=== PATIENT | male | born 1965 | race Caucasian/White ===

== ENCOUNTER 2018-05-30 22:22 | Emergency (ER) | payer BC, OTHER ==
[2018-05-30 23:12] VITALS: RESP 18
[2018-05-31] MEDS ORDERED: SODIUM CHLORIDE 0.9% 1,000 ML IV STA (00:52)
[2018-05-31 01:15] LABS: Basophils % (A) 1 %; Eosinophils % (A) 1 %; HCT 48.5 % (39.0-53.0); HGB 15.8 gm/dL (13.0-17.5); Lymphocytes # (A) 1.1 k/uL (1.0-4.8); Lymphocytes % (A) 13 %; MCH 30.5 pg (25.0-35.0); MCHC 32.6 g/dL (31.0-37.0); MCV 93.6 fL (80.0-100.0); Mean Platelet Volume 8.7; Monocytes # (A) 0.8 k/uL (0-1.0); Monocytes % (A) 10 %; Neutrophils % (A) 75 %; Platelet Count 142 k/uL (150-450); RBC 5.19 m/uL (4.30-5.90); RDW 12.9 % (11.5-15.5); WBC 8.1 k/uL (3.8-10.6)
[2018-05-31 01:19] LABS: Partial Thromboplastin Time 25.8 sec (22.0-30.0); Prothrombin Time 10.3 sec (9.0-12.0)
[2018-05-31 01:28] LABS: ALT 22 U/L (21-72); AST 24 U/L (17-59); Albumin 3.8 g/dL (3.5-5.0); Alkaline Phosphatase 89 U/L (38-126); Anion Gap 10 mmol/L; Blood Urea Nitrogen 16 mg/dL (9-20); Carbon Dioxide 23 mmol/L (22-30); Chloride 102 mmol/L (98-107); Glucose 97 mg/dL (74-99); Potassium 4.2 mmol/L (3.5-5.1); Sodium 135 mmol/L (137-145); Total Bilirubin 0.6 mg/dL (0.2-1.3); Total Protein 6.7 g/dL (6.3-8.2)
--- NOTE | 2018-05-31 02:12 | XR ---
EXAM: XR Chest, 2 Views CLINICAL HISTORY: ITS.REASON XR Reason: syncope TECHNIQUE: Frontal and lateral views of the chest. COMPARISON: No relevant prior studies available. FINDINGS: Lungs: Patchy left lower lobe opacity. Pleural space: No effusion. Heart: No cardiomegaly. Mediastinum: Unremarkable. Bones/joints: No acute findings. IMPRESSION: Patchy opacity in the left lower lobe may represent infection, aspiration, or atelectasis.
[2018-05-31 02:19] VITALS: BP 102/69
--- NOTE | 2018-05-31 03:06 | ED ---
General Adult HPI - General Chief complaint: Syncope Stated complaint: Syncope Time Seen by Provider: 05/31/18 00:05 Source: patient Mode of arrival: ambulatory Limitations: no limitations - History of Present Illness Initial comments: It is a 52-year-old woman presents to emergency department for evaluation of generalized fatigue, exhaustion and a near syncopal episode at home. Patient reports that throughout the day today he was feeling fatigued had muscle aches but he was able to work outside all day. He reports he came in the house and afternoon and took off his boots he then began to feel lightheaded and lowered himself to the ground. He felt very weak and had muscle aches felt like he may have a fever which prompted his family bring the ER for evaluation. Patient reports a mild nonproductive cough, chills and fatigue. He denies any chest pain, palpitations, nausea, vomiting or change in bowel or bladder habits. - Related Data Home Medications Medication Instructions Recorded Confirmed Lisinopril [Zestril] 5 mg PO DAILY 08/08/14 12/28/14 metFORMIN HCL [Glucophage] 500 mg PO DAILY 08/08/14 12/28/14 Previous Rx's Medication Instructions Recorded Ibuprofen [Motrin] 600 mg PO Q6HR PRN #20 tab 12/28/14 Orphenadrine [Norflex] 100 mg PO Q12H #10 tablet.er 12/28/14 Allergies Allergy/AdvReac Type Severity Reaction Status Date / Time No Known Allergies Allergy Verified 12/28/14 22:34 Review of Systems ROS Statement: Those systems with pertinent positive or pertinent negative responses have been documented in the HPI. ROS Other: All systems not noted in ROS Statement are negative. Past Medical History Past Medical History: Diabetes Mellitus, Hypertension Additional Past Medical History / Comment(s): bilateral hearing aide History of Any Multi-Drug Resistant Organisms: None Reported Additional Past Surgical History / Comment(s): neck Past Psychological History: No Psychological Hx Reported Smoking Status: Current every day smoker Past Alcohol Use History: None Reported Past Drug Use History: None Reported General Exam - General Exam Comments Initial Comments: Physical Exam GENERAL: Patient is well-developed and well-nourished. Nontoxic but appears as though he is not feeling well, febrile HENT: Normocephalic, Atraumatic. Bilateral hearing names EYES: PERRL, EOMI PULMONARY: Unlabored respirations. No audible rales rhonchi or wheezing was noted. CARDIOVASCULAR: There is a regular rate and rhythm without any murmurs gallops or rubs. ABDOMEN: Soft and nontender with normal bowel sounds. SKIN: Skin is clear with no lesions or rashes and otherwise unremarkable. : Deferred NEUROLOGIC: Patient is alert and oriented x3. Moving all extremities spontaneously MUSCULOSKELETAL: Normal extremities with adequate strength and full range of motion. No lower extremity swelling or edema. No calf tenderness. PSYCHIATRIC: Normal psychiatric evaluation. Limitations: no limitations Limitations: no limitations Course Vital Signs 05/30/18 05/31/18 05/31/18 23:05 02:18 03:34 Temperature 98.6 F 98.8 F Pulse Rate 78 90 89 Respiratory 18 18 18 Rate Blood Pressure 101/68 102/69 102/69 O2 Sat by Pulse 96 96 97 Oximetry EKG Findings - EKG Comments: EKG Findings:: EKG obtained at 2353. Rate is 93 there is a P-wave before each QRS rhythm is sinus, there is a normal axis there are normal intervals, WI 134, QRS 84, QTC 410 there are no acute ST elevations or depressions there is no evidence of acute ischemia or infarction or arrhythmia Medical Decision Making - Medical Decision Making Patient was seen and evaluated, history is obtained from patient and family at bedside As a previously healthy 52-year-old gentleman who works a very physically demanding job. Presents the emergency department after a near syncopal episode at home. Patient reports feeling very fatigued come is noted to be febrile. History and physical exam are concerning for dehydration and possible influenza. IV fluids were ordered labs and imaging ordered EKG is nonischemic Influenza A is positive Patient received IV fluid reported feeling much better at this time patient's comfortable with the plan for discharge home. Patient will be provided with a work note for 2 days All questions pertaining to care were answered return parameters were discussed and the patient was discharged home in stable condition - Lab Data Result diagrams: 05/31/18 00:14 05/31/18 00:14 Lab Results 05/31/18 05/31/18 05/31/18 Range/Units 00:14 00:14 00:14 WBC 8.1 (3.8-10.6) k/uL RBC 5.19 (4.30-5.90) m/uL Hgb 15.8 (13.0-17.5) gm/dL Hct 48.5 (39.0-53.0) % MCV 93.6 (80.0-100.0) fL MCH 30.5 (25.0-35.0) pg MCHC 32.6 (31.0-37.0) g/dL RDW 12.9 (11.5-15.5) % Plt Count 142 L (150-450) k/uL Neutrophils % 75 % Lymphocytes % 13 % Monocytes % 10 % Eosinophils % 1 % Basophils % 1 % Neutrophils # 6.0 (1.3-7.7) k/uL Lymphocytes # 1.1 (1.0-4.8) k/uL Monocytes # 0.8 (0-1.0) k/uL Eosinophils # 0.0 (0-0.7) k/uL Basophils # 0.0 (0-0.2) k/uL PT 10.3 (9.0-12.0) sec INR 1.0 (<1.2) APTT 25.8 (22.0-30.0) sec Sodium 135 L (137-145) mmol/L Potassium 4.2 (3.5-5.1) mmol/L Chloride 102 (98-107) mmol/L Carbon Dioxide 23 (22-30) mmol/L Anion Gap 10 mmol/L BUN 16 (9-20) mg/dL Creatinine 0.85 (0.66-1.25) mg/dL Est GFR (CKD-EPI)AfAm >90 (>60 ml/min/1.73 sqM) Est GFR (CKD-EPI)NonAf >90 (>60 ml/min/1.73 sqM) Glucose 97 (74-99) mg/dL Calcium 9.0 (8.4-10.2) mg/dL Total Bilirubin 0.6 (0.2-1.3) mg/dL AST 24 (17-59) U/L ALT 22 (21-72) U/L Alkaline Phosphatase 89 (38-126) U/L Troponin I (0.000-0.034) ng/mL Total Protein 6.7 (6.3-8.2) g/dL Albumin 3.8 (3.5-5.0) g/dL Influenza Type A RNA (Not Detectd) Influenza Type B (PCR) (Not Detectd) 05/31/18 05/31/18 Range/Units 00:14 00:14 WBC (3.8-10.6) k/uL RBC (4.30-5.90) m/uL Hgb (13.0-17.5) gm/dL Hct (39.0-53.0) % MCV (80.0-100.0) fL MCH (25.0-35.0) pg MCHC (31.0-37.0) g/dL RDW (11.5-15.5) % Plt Count (150-450) k/uL Neutrophils % % Lymphocytes % % Monocytes % % Eosinophils % % Basophils % % Neutrophils # (1.3-7.7) k/uL Lymphocytes # (1.0-4.8) k/uL Monocytes # (0-1.0) k/uL Eosinophils # (0-0.7) k/uL Basophils # (0-0.2) k/uL PT (9.0-12.0) sec INR (<1.2) APTT (22.0-30.0) sec Sodium (137-145) mmol/L Potassium (3.5-5.1) mmol/L Chloride (98-107) mmol/L Carbon Dioxide (22-30) mmol/L Anion Gap mmol/L BUN (9-20) mg/dL Creatinine (0.66-1.25) mg/dL Est GFR (CKD-EPI)AfAm (>60 ml/min/1.73 sqM) Est GFR (CKD-EPI)NonAf (>60 ml/min/1.73 sqM) Glucose (74-99) mg/dL Calcium (8.4-10.2) mg/dL Total Bilirubin (0.2-1.3) mg/dL AST (17-59) U/L ALT (21-72) U/L Alkaline Phosphatase (38-126) U/L Troponin I <0.012 (0.000-0.034) ng/mL Total Protein (6.3-8.2) g/dL Albumin (3.5-5.0) g/dL Influenza Type A RNA Detected H (Not Detectd) Influenza Type B (PCR) Not Detected (Not Detectd) Disposition Clinical Impression: Influenza, Dehydration Disposition: HOME SELF-CARE Condition: Stable Instructions (If sedation given, give patient instructions): Influenza (ED) Is patient prescribed a controlled substance at d/c from ED?: No Referrals: Nigel Cortez MD [Primary Care Provider] - 1-2 days
[2018-05-31 03:34] VITALS: PULSE 89; TEMP 98.8
== END 2018-05-31 03:34 | disposition home or self-care (01) ==
LOC: EC 22:22
DX: J10.1 Influenza due to other identified influenza virus with other respiratory manifestations (principal); E86.0 Dehydration; E11.9 Type 2 diabetes mellitus without complications; I10 Essential (primary) hypertension; F17.200 Nicotine dependence, unspecified, uncomplicated; Z79.84 Long term (current) use of oral hypoglycemic drugs; Z79.899 Other long term (current) drug therapy
CPT/HCPCS: 36415; 71046; 80053; 84484; 85025; 85610; 85730; 87502; 96360; 99284

== ENCOUNTER → 2024-06-20 | Outpatient (CLI) | payer BC ==
--- NOTE | 2024-06-20 12:19 | US ---
EXAMINATION TYPE: US scrotum with doppler. DATE OF EXAM: 06/20/2024 COMPARISON: NONE CLINICAL INDICATION: Male, 58 years old with history of N43.3 HYDROCELE; Hx of baseball injury many y ears ago. Vasectomy. TECHNIQUE: Grayscale, color Doppler and spectral Doppler imaging of the scrotum. FINDINGS: EXAM MEASUREMENTS: TESTICLES: Right Testicle: 4.8 x 3.5 x 3.0 cm- Multiple anechoic lesion seen laterally with largest measured = 1.0 x 1.2 x 0.9 cm. Left Testicle: 4.2 x 3.5 x 2.6 cm- medial anechoic lesion - 0.4 x 0.4 x 0.3 cm. Skin thickening - 4. 7 mm EPIDIDYMIS HEAD: Right Epididymis: 0.7 x 1.0 x 1.1 cm- multiple cystic lesions at epi head with largest measured = 2 .6 x 1.8 x 1.7 cm Left Epididymis: 0.9 x 0.8 x 0.5 cm - multicystic lesion = 2.0 x 1.7 x 1.7 x 1.1 cm Doppler performed to assess for testicular vascularity; good bilateral color flow and spectral wavefo nghia are seen. There is no evidence of testicular torsion. Presence of hydroceles: Large left with mobile internal echoes about 12.4 x 9.3 x 8.8 cm. Trace on t he right. Presence of varicoceles: no IMPRESSION: 1. No sonographic evidence for testicular torsion. Multiple intratesticular cystic areas, largest trace suring 1.2 cm. Additional cystic replacement of the epididymal heads measuring up to 2.6 cm. Possibly spermatoceles as a sequela of patient's vasectomy. Consider outpatient urology follow-up. 2. Large left-sided hydrocele measuring up to 12.4 cm with mobile internal debris. [facility], , 06/20/2024 12:17 PM
== END | disposition home or self-care (01) ==
LOC: RADUSWWP 09:44
PROVIDERS: ATTEND Family Medicine
DX: N43.3 Hydrocele, unspecified (principal); N50.89 Other specified disorders of the male genital organs
CPT/HCPCS: 76870; 93975